=== PATIENT | male | born 1960 | race African-American/Black ===

== ENCOUNTER 2024-01-26 10:52 | Outpatient (CLI) | payer OTHER | END 2024-01-26 10:53 | disposition home or self-care (01) | LOC: CSHRAD 10:52 | PROVIDERS: ATTEND Nurse Practitioner Adult Health | DX: R76.11 Nonspecific reaction to tuberculin skin test without active tuberculosis (principal); J98.4 Other disorders of lung; J90 Pleural effusion, not elsewhere classified | CPT/HCPCS: 71046 ==